=== PATIENT | male | born 1960 | race African-American/Black ===

== ENCOUNTER 2024-10-29 22:01 | Emergency (ER) | payer MEDICAID ==
[~2024-10-29] VITALS: Ht 190.5 cm; Wt 97.0 kg
[2024-10-29 22:08] VITALS: O2SAT 97
[2024-10-29] MEDS ORDERED: NAPR-1176 MT (23:23)
[2024-10-29] MEDS ORDERED: LIDO700A15 TP (23:23)
[2024-10-29] MEDS: KETOROLAC 15MG/ML VIAL IM ONE (23:36)
[2024-10-29 23:39] VITALS: BP 134/69; PULSE 66; RESP 18; TEMP 36.6; O2SAT 97
== END 2024-10-29 23:52 | disposition home or self-care (01) ==
LOC: ER 22:01
DX: M79.605 Pain in left leg (principal); E11.9 Type 2 diabetes mellitus without complications; Z79.1 Long term (current) use of non-steroidal anti-inflammatories (NSAID)
CPT/HCPCS: 99283; 73590; 96372; J1885